=== PATIENT | male | born 1995 | race Caucasian/White ===

== ENCOUNTER 2020-09-20 02:00 | Emergency (ER) | payer OTHER ==
[~2020-09-20] VITALS: Ht 185.4 cm; Wt 122.5 kg
[~2020-09-20 02:00] MED LIST: COREG25 MG PO; GEODON20 MG PO; PRISTIQ100 MG PO; REQUIP 1 MG TABL1 M1 PO; WELLBUTRIN 100100 MG PO
[2020-09-20] MEDS ORDERED: LOPRESSOR50 MG PO (02:22)
[2020-09-20] MEDS ORDERED: GEODON 80 MG CA80 MG PO (02:27)
[2020-09-20] MEDS ORDERED: GABAPENTIN600 M1 PO (02:27)
[2020-09-20 03:03] LABS: AMP/METHAMP POSITIVE (Negative); BARBITURATES Negative (Negative); BENZODIAZEPINES Negative (Negative); COCAINE Negative (Negative); METHADONE Negative (Negative); OPIATES Negative (Negative); PCP Negative (Negative)
[2020-09-20 03:39] LABS: HEMATOCRIT 47.5 % (42.0-52.0); HEMOGLOBIN 16.4 gm/dL (14.0-18.0); MCH 31.8 pg (26.0-34.0); MCHC 34.6 g/dL (28.0-37.0); MCV 91.7 fL (80.0-100.0); RBC 5.17 mil/uL (4.50-6.00); RDW 13.4 % (10.5-14.5); WBC 14.8 thou/uL (4.0-11.0)
[2020-09-20 03:47] LABS: CALCIUM 9.5 mg/dL (8.5-10.1); POTASSIUM 4.1 mmol/L (3.5-5.1)
[2020-09-20 08:47] VITALS: BP 177/103
--- NOTE | 2020-09-20 08:57 | EKG ---
[place] [address] [facility] [place] [address] ELECTROCARDIOGRAM REPORT Name: DEEPAK WELLS Room #: DEP EARLINE Kelley#: [id number] Admission: 09/20/20 Attend Phys: Discharge: 09/20/20 Date of : [birth year] Report #: [id number] [facility] ED Test Date: 2020-09-20 Test Time: 08:38:46 Pat Name: DEEPAK WELLS Department: Room: Gender: M Manager Of Sales: petey biggs : 1995 Requested By: Lima Neville Order Number: [id number] MD: Joseph Vasques Measurements Intervals [place] Rate: 133 P: 28 ID: [id number] QRS: -5 QRSD: 86 T: 32 QT: 307 QTc: 457 Interpretive Statements Sinus tachycardia Compared to ECG 01/26/2017 05:32:34 Sinus rhythm no longer present Electronically Signed On 09-20-2020 8:57:46 CDT by Joseph Vasques [email or web address] <ELECTRONICALLY SIGNED> By: Joseph Vasques MD, [facility] 09/20/20 [id number] Joseph Vasques MD, FACC /EPI
== END 2020-09-20 08:49 | disposition home or self-care (01) ==
LOC: ER 02:00
PROVIDERS: Emergency Medicine
DX: F15.10 Other stimulant abuse, uncomplicated (principal); Z20.822 Contact with and (suspected) exposure to COVID-19; R00.0 Tachycardia, unspecified; I10 Essential (primary) hypertension; F17.210 Nicotine dependence, cigarettes, uncomplicated; Z79.899 Other long term (current) drug therapy